=== PATIENT | male | born 1965 | race Caucasian/White ===

== ENCOUNTER 2020-10-15 23:24 | Inpatient (IN) | payer BC, MEDICAID ==
[~2020-10-15] VITALS: Ht 188 cm; Wt 127.0 kg
[~2020-10-15 23:24] MED LIST: NO HOME MEDS
[2020-10-16] VITALS (20 sets, daily range): BP systolic 107–135; BP diastolic 56–84
--- NOTE | 2020-10-16 00:02 | NUR ---
LEFT THIGH MEASUREMENT 24 IN. RIGHT THIGH MEASUREMENT 22.5 IN BILATERAL CALF MEASUREMENT 17 IN
[2020-10-16 00:29] LABS: BASOPHILS # (AUTO) 0.1 X10'3 (0-0.2); BASOPHILS % (AUTO) 1.1 % (0-1); EOSINOPHILS # (AUTO) 0.3 X10'3 (0-0.9); EOSINOPHILS % (AUTO) 4.5 % (0-6); HEMATOCRIT 44.6 % (42.0-52.0); HEMOGLOBIN 15.3 g/dl (14.0-17.9); LYMPHOCYTES # (AUTO) 1.4 X10'3 (1.1-4.8); LYMPHOCYTES % (AUTO) 19.1 % (21-51); MEAN CORPUSCULAR HEMOGLOBIN 30.3 PG (27.0-31.0); MEAN CORPUSCULAR HGB CONC 34.2 g/dL (33.0-36.5); MEAN CORPUSCULAR VOLUME 88.7 FL (78-98); MEAN PLATELET VOLUME 6.8 FL (7.4-10.4); MONOCYTES # (AUTO) 0.9 X10'3 (0-0.9); MONOCYTES % (AUTO) 11.7 % (2-12); NEUTROPHILS # (AUTO) 4.8 X10'3 (1.8-7.7); NEUTROPHILS % (AUTO) 63.6 % (42-75); PLATELET COUNT 129 X10'3 (140-440); RED BLOOD COUNT 5.03 X10'6 (4.70-6.10); RED CELL DISTRIBUTION WIDTH 14.3 % (11.5-14.5); WHITE BLOOD COUNT 7.5 X10'3 (4.5-11.0)
[2020-10-16 00:42] LABS: PARTIAL THROMBOPLASTIN TIME 25 SECONDS (22-32)
[2020-10-16 00:45] LABS: ALANINE AMINOTRANSFERASE 24 U/L (12-78); ALBUMIN/GLOBULIN RATIO 1.3 (1.1-1.5); ALKALINE PHOSPHATASE 86 IU/L (46-116); ANION GAP 7 (8-16); ASPARTATE AMINO TRANSFERASE 13 U/L (10-37); BILIRUBIN,TOTAL 0.7 MG/DL (0.1-1.0); BLOOD UREA NITROGEN 27 MG/DL (7-18); CALCIUM 8.4 MG/DL (8.5-10.1); CHLORIDE 103 MMOL/L (99-107); GLUCOSE 183 MG/DL (70-104); SODIUM 137 MMOL/L (135-145); TOTAL CARBON DIOXIDE 27.2 MMOL/L (24-32); TOTAL PROTEIN 7.1 G/DL (6.4-8.2); eGFR 49 ML/MIN
--- NOTE | 2020-10-16 02:12 | NUR ---
FRONT EDGER IN ROOM
[2020-10-16] MEDS ORDERED: heparin 10,000 units/1 ML INJ IV ONE (02:30)
[2020-10-16] MEDS ORDERED: heparin 25,000 UNIT/250ml bag 250 ML IV SCH (02:30)
[2020-10-16] MEDS ORDERED: heparin 10,000 units/1 ML INJ IV PRN (02:30)
[2020-10-16] MEDS ORDERED: acetaminophen 325mg tablet PO PRN (04:10)
[2020-10-16] MEDS ORDERED: magnesium hydroxide 30ml (MOM) UD suspension PO PRN (04:10)
[2020-10-16] MEDS ORDERED: mag hydrox/Alum hydrox/simeth 30ml oral suspension PO PRN (04:10)
[2020-10-16] MEDS ORDERED: ondansetron/PF 4mg/2ml inj IV PRN (04:10)
[2020-10-16] MEDS: normal saline 1000ml 1,000 ML IV SCH (04:25)
[2020-10-16 04:55] LABS: HEMOGLOBIN A1C 6.7 % (4.5-6.2)
[2020-10-16] MEDS: heparin 25,000 UNIT/250ml bag 250 ML IV SCH ×2 (07:55→20:25)
--- NOTE | 2020-10-16 10:13 | NUR ---
notified. PAGER ID: [phone] MESSAGE: Re; Gabe Tran. [id number]. Critical lab result; PTT was 111. Holding Heparin infusion for two hours. FYI Also, no word from IR yet. Thanks. Mame. [id number].
[2020-10-16] MEDS ORDERED: magnesium 4gm in 100ml NS 100 ML IV PRN (11:05)
[2020-10-16] MEDS ORDERED: potassium Cl 20 mEq SR tablet PO PRN ×2 (11:05)
[2020-10-16] MEDS ORDERED: magnesium Cl slow-release 64mg tablet PO PRN (11:05)
[2020-10-16] MEDS ORDERED: potassium CL 10mEq/100ml bag 100 ML IV PRN (11:05)
[2020-10-16] MEDS ORDERED: iohexol 300 MG/1 ML 50ml polymer ONE (11:09)
[2020-10-16] MEDS ORDERED: iohexol 300mg/ml 100ml inj. ONE (11:09)
[2020-10-16] MEDS ORDERED: LIDOcaine 1%/PF 5ML 10 MG/ML VIAL ONE ×2 (11:09→11:55)
[2020-10-16] MEDS ORDERED: fentaNYL/PF 50MCG/1 ML 2ML syringe ONE ×2 (11:55→12:00)
[2020-10-16] MEDS ORDERED: midazolam 2 mg/2 ml injection ONE ×3 (11:55→12:06)
[2020-10-16] MEDS ORDERED: heparin 1,000 UNITS/NS 500ml 500 ML ONE ×2 (12:05→12:55)
[2020-10-16] MEDS ORDERED: tPA-cathflo 2mg/2ml IV flush 4 MG in normal saline 100ml IV soln 100 ML ICATH SCH ×2 (12:50→12:55)
[2020-10-16] MEDS: heparin 1,000 UNITS/NS 500ml 500 ML IV SCH (13:05)
[2020-10-16] MEDS: HYDROcodone/acetaminophen 10/325mg tab PO PRN (14:17)
--- NOTE | 2020-10-16 14:23 | NUR ---
PT ARRIVED FROM IR VIA GURNEY. TPA AND HEPARIN INFUSING. PT AWAKE AND ALERT. EDUCATED ON KEEPING LEFT LEG STRAIGHT.
[2020-10-16] MEDS: LORazepam 1 MG tablet PO PRN (15:57)
[2020-10-16 18:26] LABS: HEMATOCRIT 43.3 % (42.0-52.0); HEMOGLOBIN 14.8 g/dl (14.0-17.9); MEAN CORPUSCULAR HEMOGLOBIN 30.2 PG (27.0-31.0); MEAN CORPUSCULAR HGB CONC 34.1 g/dL (33.0-36.5); MEAN CORPUSCULAR VOLUME 88.6 FL (78-98); MEAN PLATELET VOLUME 6.8 FL (7.4-10.4); PLATELET COUNT 109 X10'3 (140-440); RED BLOOD COUNT 4.89 X10'6 (4.70-6.10); RED CELL DISTRIBUTION WIDTH 14.4 % (11.5-14.5); WHITE BLOOD COUNT 8.2 X10'3 (4.5-11.0)
--- NOTE | 2020-10-16 18:30 | NUR ---
Patient in room CICU 2010. I have received report from EL Regalado and had the opportunity to ask questions and assume patient care.
[2020-10-16] MEDS: tPA-cathflo 2mg/2ml IV flush 4 MG in normal saline 100ml IV soln 100 ML ICATH SCH (19:37)
[2020-10-16] MEDS: K and/or MAG REPLACEMENT MC SCH (20:00)
[2020-10-17] VITALS (29 sets, daily range): BP systolic 109–144; BP diastolic 68–94
[2020-10-17] MEDS: HYDROcodone/acetaminophen 10/325mg tab PO PRN ×4 (00:05→16:15)
[2020-10-17] MEDS: heparin 1,000 UNITS/NS 500ml 500 ML IV SCH (00:47)
[2020-10-17] MEDS: LORazepam 1 MG tablet PO PRN ×2 (01:16→22:20)
[2020-10-17 02:55] LABS: BASOPHILS % (AUTO) 0.5 % (0-1); EOSINOPHILS # (AUTO) 0.3 X10'3 (0-0.9); EOSINOPHILS % (AUTO) 5.6 % (0-6); HEMATOCRIT 41.9 % (42.0-52.0); HEMOGLOBIN 14.3 g/dl (14.0-17.9); LYMPHOCYTES # (AUTO) 1.4 X10'3 (1.1-4.8); LYMPHOCYTES % (AUTO) 23.4 % (21-51); MEAN CORPUSCULAR HEMOGLOBIN 30.4 PG (27.0-31.0); MEAN CORPUSCULAR HGB CONC 34.2 g/dL (33.0-36.5); MEAN CORPUSCULAR VOLUME 88.8 FL (78-98); MEAN PLATELET VOLUME 6.8 FL (7.4-10.4); MONOCYTES % (AUTO) 16.1 % (2-12); NEUTROPHILS # (AUTO) 3.2 X10'3 (1.8-7.7); NEUTROPHILS % (AUTO) 54.4 % (42-75); PLATELET COUNT 103 X10'3 (140-440); RED BLOOD COUNT 4.72 X10'6 (4.70-6.10); RED CELL DISTRIBUTION WIDTH 14.2 % (11.5-14.5); WHITE BLOOD COUNT 5.9 X10'3 (4.5-11.0)
[2020-10-17 03:15] LABS: ALANINE AMINOTRANSFERASE 24 U/L (12-78); ALBUMIN 3.6 G/DL (3.4-5.0); ALBUMIN/GLOBULIN RATIO 1.2 (1.1-1.5); ALKALINE PHOSPHATASE 62 IU/L (46-116); ANION GAP 8 (8-16); ASPARTATE AMINO TRANSFERASE 13 U/L (10-37); BILIRUBIN,TOTAL 1.4 MG/DL (0.1-1.0); BLOOD UREA NITROGEN 22 MG/DL (7-18); BUN/CREATININE RATIO 21.6 (5.4-32.0); CHLORIDE 106 MMOL/L (99-107); CHOL/HDL RATIO 4.6 (0.00-4.99); CHOLESTEROL 152 MG/DL (0-200); CREATININE 1.02 MG/DL (0.60-1.10); GLUCOSE 126 MG/DL (70-104); HDL CHOLESTEROL 33 MG/DL (35-60); LDL CHOLESTEROL 94 MG/DL (50-100); MAGNESIUM 1.9 MG/DL (1.5-2.4); SODIUM 140 MMOL/L (135-145); TOTAL CARBON DIOXIDE 26.4 MMOL/L (24-32); TOTAL PROTEIN 6.5 G/DL (6.4-8.2); TRIGLYCERIDES 194 MG/DL (20-135); eGFR 76 ML/MIN
[2020-10-17] MEDS: tPA-cathflo 2mg/2ml IV flush 4 MG in normal saline 100ml IV soln 100 ML ICATH SCH ×3 (03:30→16:13)
--- NOTE | 2020-10-17 06:12 | NUR ---
Problems reprioritized. Patient report given, questions answered & plan of care reviewed with EL Regalado.
[2020-10-17 07:04] LABS: HEMATOCRIT 41.8 % (42.0-52.0); HEMOGLOBIN 14.4 g/dl (14.0-17.9); MEAN CORPUSCULAR HEMOGLOBIN 30.9 PG (27.0-31.0); MEAN CORPUSCULAR HGB CONC 34.5 g/dL (33.0-36.5); MEAN CORPUSCULAR VOLUME 89.4 FL (78-98); MEAN PLATELET VOLUME 6.9 FL (7.4-10.4); PLATELET COUNT 97 X10'3 (140-440); RED BLOOD COUNT 4.67 X10'6 (4.70-6.10); RED CELL DISTRIBUTION WIDTH 14.2 % (11.5-14.5); WHITE BLOOD COUNT 5.3 X10'3 (4.5-11.0)
[2020-10-17] MEDS: K and/or MAG REPLACEMENT MC SCH ×2 (07:59→18:55)
[2020-10-17 10:36] LABS: HEMATOCRIT 41.3 % (42.0-52.0); HEMOGLOBIN 14.3 g/dl (14.0-17.9); MEAN CORPUSCULAR HGB CONC 34.8 g/dL (33.0-36.5); MEAN CORPUSCULAR VOLUME 89.2 FL (78-98); MEAN PLATELET VOLUME 6.6 FL (7.4-10.4); PLATELET COUNT 96 X10'3 (140-440); RED BLOOD COUNT 4.63 X10'6 (4.70-6.10); RED CELL DISTRIBUTION WIDTH 14.5 % (11.5-14.5); WHITE BLOOD COUNT 5.7 X10'3 (4.5-11.0)
[2020-10-17] MEDS ORDERED: heparin 1,000 UNITS/NS 500ml 500 ML ONE (10:55)
[2020-10-17] MEDS ORDERED: fentaNYL/PF 50MCG/1 ML 2ML syringe ONE (10:55)
[2020-10-17] MEDS ORDERED: midazolam 2 mg/2 ml injection ONE ×2 (10:55→10:59)
[2020-10-17] MEDS ORDERED: iohexol 300mg/ml 100ml inj. ONE (10:55)
--- NOTE | 2020-10-17 11:02 | NUR ---
PT TAKEN TO IR VIA BED TO CHECK STATUS OF DVT AFTER HEPARIN AND t Addendum: 10/17/20 at 1103 by Fabricio Moreno RN TPA LAST NIGHT
[2020-10-17] MEDS ORDERED: LIDOcaine 1%/PF 5ML 10 MG/ML VIAL ONE (11:05)
[2020-10-17] MEDS ORDERED: heparin sodium, porcine/PF 100unit/ml 5ML syringe ONE (11:22)
--- NOTE | 2020-10-17 18:30 | NUR ---
Patient in room CICU 2010. I have received report from EL Regalado and had the opportunity to ask questions and assume patient care.
[2020-10-17 18:31] LABS: HEMATOCRIT 40.6 % (42.0-52.0); HEMOGLOBIN 13.9 g/dl (14.0-17.9); MEAN CORPUSCULAR HEMOGLOBIN 30.3 PG (27.0-31.0); MEAN CORPUSCULAR HGB CONC 34.3 g/dL (33.0-36.5); MEAN CORPUSCULAR VOLUME 88.3 FL (78-98); MEAN PLATELET VOLUME 6.7 FL (7.4-10.4); PLATELET COUNT 98 X10'3 (140-440); RED BLOOD COUNT 4.59 X10'6 (4.70-6.10); RED CELL DISTRIBUTION WIDTH 14.2 % (11.5-14.5); WHITE BLOOD COUNT 6.7 X10'3 (4.5-11.0)
[2020-10-18] VITALS (24 sets, daily range): BP systolic 115–156; BP diastolic 70–98
[2020-10-18] MEDS: HYDROcodone/acetaminophen 10/325mg tab PO PRN ×2 (00:49→09:32)
[2020-10-18] MEDS: tPA-cathflo 2mg/2ml IV flush 4 MG in normal saline 100ml IV soln 100 ML ICATH SCH ×2 (01:17→08:28)
[2020-10-18 01:22] LABS: HEMOGLOBIN 14.6 g/dl (14.0-17.9); MEAN CORPUSCULAR HEMOGLOBIN 30.9 PG (27.0-31.0); MEAN CORPUSCULAR HGB CONC 34.8 g/dL (33.0-36.5); MEAN CORPUSCULAR VOLUME 88.9 FL (78-98); MEAN PLATELET VOLUME 7.1 FL (7.4-10.4); PLATELET COUNT 92 X10'3 (140-440); RED BLOOD COUNT 4.72 X10'6 (4.70-6.10); RED CELL DISTRIBUTION WIDTH 14.1 % (11.5-14.5); WHITE BLOOD COUNT 7.2 X10'3 (4.5-11.0)
[2020-10-18 03:51] LABS: BASOPHILS % (AUTO) 0.6 % (0-1); EOSINOPHILS # (AUTO) 0.2 X10'3 (0-0.9); EOSINOPHILS % (AUTO) 3.8 % (0-6); HEMATOCRIT 40.8 % (42.0-52.0); HEMOGLOBIN 14.2 g/dl (14.0-17.9); LYMPHOCYTES # (AUTO) 1.4 X10'3 (1.1-4.8); LYMPHOCYTES % (AUTO) 21.8 % (21-51); MEAN CORPUSCULAR HEMOGLOBIN 30.4 PG (27.0-31.0); MEAN CORPUSCULAR HGB CONC 34.8 g/dL (33.0-36.5); MEAN CORPUSCULAR VOLUME 87.5 FL (78-98); MEAN PLATELET VOLUME 6.9 FL (7.4-10.4); MONOCYTES # (AUTO) 0.8 X10'3 (0-0.9); MONOCYTES % (AUTO) 12.3 % (2-12); NEUTROPHILS # (AUTO) 3.9 X10'3 (1.8-7.7); NEUTROPHILS % (AUTO) 61.5 % (42-75); PLATELET COUNT 95 X10'3 (140-440); RED BLOOD COUNT 4.67 X10'6 (4.70-6.10); RED CELL DISTRIBUTION WIDTH 14.1 % (11.5-14.5); WHITE BLOOD COUNT 6.4 X10'3 (4.5-11.0)
[2020-10-18 03:52] LABS: PARTIAL THROMBOPLASTIN TIME 30 SECONDS (22-32)
[2020-10-18] MEDS: normal saline 1000ml 1,000 ML IV SCH (04:10)
[2020-10-18 04:12] LABS: ALANINE AMINOTRANSFERASE 23 U/L (12-78); ALBUMIN 3.3 G/DL (3.4-5.0); ALBUMIN/GLOBULIN RATIO 1.1 (1.1-1.5); ALKALINE PHOSPHATASE 60 IU/L (46-116); ANION GAP 7 (8-16); ASPARTATE AMINO TRANSFERASE 14 U/L (10-37); BILIRUBIN,TOTAL 0.9 MG/DL (0.1-1.0); BLOOD UREA NITROGEN 17 MG/DL (7-18); BUN/CREATININE RATIO 18.1 (5.4-32.0); CALCIUM 8.1 MG/DL (8.5-10.1); CHLORIDE 104 MMOL/L (99-107); CREATININE 0.94 MG/DL (0.60-1.10); GLUCOSE 126 MG/DL (70-104); MAGNESIUM 2.1 MG/DL (1.5-2.4); POTASSIUM 3.9 MMOL/L (3.5-5.1); SODIUM 139 MMOL/L (135-145); TOTAL CARBON DIOXIDE 28.1 MMOL/L (24-32); TOTAL PROTEIN 6.4 G/DL (6.4-8.2); eGFR 83 ML/MIN
[2020-10-18 05:55] LABS: HEMATOCRIT 41.1 % (42.0-52.0); HEMOGLOBIN 14.5 g/dl (14.0-17.9); MEAN CORPUSCULAR HGB CONC 35.3 g/dL (33.0-36.5); MEAN CORPUSCULAR VOLUME 87.8 FL (78-98); PLATELET COUNT 93 X10'3 (140-440); RED BLOOD COUNT 4.68 X10'6 (4.70-6.10); RED CELL DISTRIBUTION WIDTH 14.2 % (11.5-14.5); WHITE BLOOD COUNT 6.3 X10'3 (4.5-11.0)
--- NOTE | 2020-10-18 06:19 | NUR ---
Problems reprioritized. Patient report given, questions answered & plan of care reviewed with EL Hannah.
[2020-10-18] MEDS: K and/or MAG REPLACEMENT MC SCH ×2 (08:00→20:00)
--- NOTE | 2020-10-18 08:05 | NUR ---
admission assessment was not done. Pt states that he had shorts and shirt with keys in pocket of shorts and are not at bedside. called and left message with ivan receiving rn from angio, and pcu charge nurse (currently in pt room) since pt came from pcu prior to angio.
[2020-10-18 09:43] LABS: HEMATOCRIT 41.6 % (42.0-52.0); HEMOGLOBIN 14.4 g/dl (14.0-17.9); MEAN CORPUSCULAR HEMOGLOBIN 30.2 PG (27.0-31.0); MEAN CORPUSCULAR HGB CONC 34.5 g/dL (33.0-36.5); MEAN CORPUSCULAR VOLUME 87.6 FL (78-98); MEAN PLATELET VOLUME 6.7 FL (7.4-10.4); PLATELET COUNT 99 X10'3 (140-440); RED BLOOD COUNT 4.75 X10'6 (4.70-6.10); RED CELL DISTRIBUTION WIDTH 14.1 % (11.5-14.5); WHITE BLOOD COUNT 5.7 X10'3 (4.5-11.0)
[2020-10-18] MEDS ORDERED: iohexol 300 MG/1 ML 50ml polymer ONE ×2 (14:12→14:16)
[2020-10-18] MEDS ORDERED: LIDOcaine 1%/PF 5ML 10 MG/ML VIAL ONE (14:12)
[2020-10-18] MEDS: benzocaine/menthol oral lozeng 1 EACH BOX MM PRN ×2 (14:20→18:51)
[2020-10-18] MEDS ORDERED: enoxaparin 100mg/ml syringe SUBCUT ONE ×2 (15:05→15:20)
[2020-10-18] MEDS ORDERED: enoxaparin 30mg/0.3ml syringe SUBCUT ONE (15:20)
[2020-10-18 17:38] LABS: HEMATOCRIT 40.9 % (42.0-52.0); HEMOGLOBIN 14.3 g/dl (14.0-17.9); MEAN CORPUSCULAR HEMOGLOBIN 30.7 PG (27.0-31.0); MEAN CORPUSCULAR VOLUME 87.8 FL (78-98); MEAN PLATELET VOLUME 6.8 FL (7.4-10.4); PLATELET COUNT 103 X10'3 (140-440); RED BLOOD COUNT 4.67 X10'6 (4.70-6.10); RED CELL DISTRIBUTION WIDTH 14.3 % (11.5-14.5); WHITE BLOOD COUNT 6.5 X10'3 (4.5-11.0)
[2020-10-18] MEDS ORDERED: enoxaparin 100mg/ml syringe SUBCUT SCH ×2 (20:00)
[2020-10-18] MEDS ORDERED: enoxaparin 30mg/0.3ml syringe SUBCUT SCH (20:00)
[2020-10-18] MEDS: LORazepam 1 MG tablet PO PRN (21:07)
--- NOTE | 2020-10-18 21:17 | NUR ---
dressing chaged to popliteal area. no bleeding but noted small blisters from the tape
[2020-10-19 00:03] VITALS: BP 128/89
--- NOTE | 2020-10-19 00:04 | NUR ---
lovenox 100mg given at 5. 1999 dose held Perez TESTING CONSULTANT aware
[2020-10-19 01:02] VITALS: BP 133/88
[2020-10-19 02:25] VITALS: BP 134/75
[2020-10-19] MEDS: HYDROcodone/acetaminophen 10/325mg tab PO PRN ×3 (02:33→14:33)
[2020-10-19 02:50] VITALS: BP 132/77
--- NOTE | 2020-10-19 03:15 | NUR ---
Received report from EL Pérez in CICU at 0225. Patient arrived on unit at 0240 with all personal belongings. 2 RN skin check was performed and documented in patients interventions. A full set of vitals were taken and recorded. Patient is currently resting and has all needs met.
[2020-10-19] MEDS: LORazepam 1 MG tablet PO PRN ×2 (05:55→11:27)
[2020-10-19 06:28] LABS: BASOPHILS % (AUTO) 0.5 % (0-1); EOSINOPHILS # (AUTO) 0.2 X10'3 (0-0.9); EOSINOPHILS % (AUTO) 4.3 % (0-6); HEMATOCRIT 41.1 % (42.0-52.0); HEMOGLOBIN 14.2 g/dl (14.0-17.9); LYMPHOCYTES # (AUTO) 1.5 X10'3 (1.1-4.8); LYMPHOCYTES % (AUTO) 26.8 % (21-51); MEAN CORPUSCULAR HEMOGLOBIN 30.3 PG (27.0-31.0); MEAN CORPUSCULAR HGB CONC 34.4 g/dL (33.0-36.5); MEAN PLATELET VOLUME 7.1 FL (7.4-10.4); MONOCYTES # (AUTO) 0.8 X10'3 (0-0.9); MONOCYTES % (AUTO) 13.6 % (2-12); NEUTROPHILS # (AUTO) 3.1 X10'3 (1.8-7.7); NEUTROPHILS % (AUTO) 54.8 % (42-75); PLATELET COUNT 109 X10'3 (140-440); RED BLOOD COUNT 4.67 X10'6 (4.70-6.10); RED CELL DISTRIBUTION WIDTH 14.1 % (11.5-14.5); WHITE BLOOD COUNT 5.7 X10'3 (4.5-11.0)
[2020-10-19 06:35] LABS: ALANINE AMINOTRANSFERASE 32 U/L (12-78); ALBUMIN 3.3 G/DL (3.4-5.0); ALBUMIN/GLOBULIN RATIO 1.1 (1.1-1.5); ALKALINE PHOSPHATASE 56 IU/L (46-116); ANION GAP 6 (8-16); ASPARTATE AMINO TRANSFERASE 26 U/L (10-37); BILIRUBIN,TOTAL 0.9 MG/DL (0.1-1.0); BLOOD UREA NITROGEN 13 MG/DL (7-18); BUN/CREATININE RATIO 14.1 (5.4-32.0); CALCIUM 8.7 MG/DL (8.5-10.1); CHLORIDE 103 MMOL/L (99-107); CREATININE 0.92 MG/DL (0.60-1.10); GLUCOSE 102 MG/DL (70-104); MAGNESIUM 2.1 MG/DL (1.5-2.4); POTASSIUM 3.9 MMOL/L (3.5-5.1); SODIUM 138 MMOL/L (135-145); TOTAL CARBON DIOXIDE 28.9 MMOL/L (24-32); TOTAL PROTEIN 6.4 G/DL (6.4-8.2); eGFR 85 ML/MIN
--- NOTE | 2020-10-19 06:41 | NUR ---
Patient in room PCU 3023. I have received report from Estefany GALELGOS and had the opportunity to ask questions and assume patient care.
--- NOTE | 2020-10-19 06:43 | NUR ---
Problems reprioritized. Patient report given, questions answered & plan of care reviewed with EL Macias.
[2020-10-19 07:00] VITALS: BP 135/73
[2020-10-19] MEDS: K and/or MAG REPLACEMENT MC SCH (08:00)
[2020-10-19] MEDS ORDERED: apixaban 5mg tablet PO SCH (08:00)
[2020-10-19 11:50] LABS: HEMATOCRIT 42.3 % (42.0-52.0); HEMOGLOBIN 14.6 g/dl (14.0-17.9); MEAN CORPUSCULAR HEMOGLOBIN 30.5 PG (27.0-31.0); MEAN CORPUSCULAR HGB CONC 34.6 g/dL (33.0-36.5); MEAN PLATELET VOLUME 6.4 FL (7.4-10.4); PLATELET COUNT 124 X10'3 (140-440); RED CELL DISTRIBUTION WIDTH 14.1 % (11.5-14.5); WHITE BLOOD COUNT 5.1 X10'3 (4.5-11.0)
[2020-10-19] MEDS ORDERED: APIX5TAB3 PO (13:00)
--- NOTE | 2020-10-19 14:53 | NUR ---
Pt stable for discharge per MD orders. All discharge instructions reviewed with patient and all questions answered. New prescription called into pharmacy. PIV discontinued, cannula intact. Telemetry discontinued, telegraph plant maintainer notified. All belongings collected and sent with patient. Patient wheeled to lobby by staff meeting and picked up in private vehicle by family member.
== END 2020-10-19 14:35 | disposition home or self-care (01) | DRG 272 ==
LOC: ER 23:24 → ED HOLD 10-16 04:07 → PCU 3S 10-16 07:35 → CICU 2S 10-16 13:37 → PCU 3S 10-19 02:40
PROVIDERS: ADMIT Internal Medicine; ATTEND Family Medicine
PROC: 06CN3ZZ Extirpation of Matter from Left Femoral Vein, Percutaneous Approach (ICD-10-PCS; principal; 2020-10-16)
PROC: 06CD3ZZ Extirpation of Matter from Left Common Iliac Vein, Percutaneous Approach (ICD-10-PCS; 2020-10-16)
PROC: 06CG3ZZ Extirpation of Matter from Left External Iliac Vein, Percutaneous Approach (ICD-10-PCS; 2020-10-16)
PROC: B51C1ZZ Fluoroscopy of Left Lower Extremity Veins using Low Osmolar Contrast (ICD-10-PCS; 2020-10-16)
PROC: 067G3ZZ Dilation of Left External Iliac Vein, Percutaneous Approach (ICD-10-PCS; 2020-10-17)
PROC: B51C1ZZ Fluoroscopy of Left Lower Extremity Veins using Low Osmolar Contrast (ICD-10-PCS; 2020-10-17)
PROC: 3E03317 Introduction of Other Thrombolytic into Peripheral Vein, Percutaneous Approach (ICD-10-PCS; 2020-10-17)
PROC: B51C1ZZ Fluoroscopy of Left Lower Extremity Veins using Low Osmolar Contrast (ICD-10-PCS; 2020-10-18)
DX: I82.412 Acute embolism and thrombosis of left femoral vein (principal); I82.432 Acute embolism and thrombosis of left popliteal vein; I82.442 Acute embolism and thrombosis of left tibial vein; M79.18 Myalgia, other site; Z87.891 Personal history of nicotine dependence
CPT/HCPCS: 36005; 36415; 37187; 37212; 37213; 37214; 37248; 75820; 76937; 80053; 80061; 82948; 83036; 83735; 85025; 85027; 85384; 85610; 85730; 87081; 93971; 96365; 99152; 99153; 99285; C1725; C1729; C1751; C1769; C1887; C1894; G0378; J1642; J1644; J1650; J2250; J2997; J3010; J7030; Q9967